=== PATIENT | female | born 1975 | race Hispanic/Latino ===

== ENCOUNTER 2016-05-26 17:02 | Emergency (ER) | payer BC ==
[2016-05-26 17:04] VITALS: BMI 28.3
[2016-05-26 17:07] VITALS: O2SAT 100
--- NOTE | 2016-05-26 17:13 | ED PDOC ---
Arrival/HPI - General Time Seen by Provider: 05/26/16 17:03 Historian: Patient - History of Present Illness Narrative History of Present Illness (Text): 05/26/16 17:03 Amrita Phillip is a 41 year old female who presents to the emergency department complaining of a seizure while sitting in the emergency department where her mother is a patient. Patient was noted to be on the floor of bed 5, where mother is a patient, by Emergency department staff. Patient was seen on the floor with seizure activity such as generalized shaking. Patient was immediately placed on a stretcher and give IM Ativan. Seizure subsided after approximately 2 minutes. At present, patient is alert and oriented. 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 Patient notes that she also takes medication for a bipolar disorder. Patient occasionally drinks alcohol but denies any drug use. According to , patient tends to get more seizures when she is stressed. At present, patient is complaining of a headache, neck pain, and left shoulder pain but denies any other complaints at this time. PMD: Dr. Kalen Hsieh Time/Duration: Other (In Emergency department ) Symptom Onset: Sudden Symptom Course: Improving Severity Level: Mild Activities at Onset: Rest Context: Sitting Past Medical History - Provider Review Nursing Documentation Reviewed: Yes - Infectious Disease Hx of Infectious Diseases: None - Tetanus Immunization Tetanus Immunization: Unknown - Cardiac Hx Cardiac Disorders: No - Pulmonary Hx Respiratory Disorders: No - Neurological Hx Neurological Disorder: Yes Hx Seizures: Yes - HEENT Hx HEENT Disorder: No - Renal Hx Renal Disorder: No - Endocrine/Metabolic Hx Endocrine Disorders: No Hx Hypothyroidism: No - Hematological/Oncological Hx Blood Disorders: No - Integumentary Hx Dermatological Disorder: No - Musculoskeletal/Rheumatological Hx Musculoskeletal Disorders: Yes Hx Falls: Yes Other/Comment: ACL repair - Gastrointestinal Hx Gastrointestinal Disorders: Yes Hx Gastroesophageal Reflux: Yes - Genitourinary/Gynecological Hx Genitourinary Disorders: No - Psychiatric Hx Psychophysiologic Disorder: Yes Hx Anxiety: Yes Hx Bipolar Disorder: Yes Hx Depression: Yes Hx Substance Use: Yes - Past Surgical History Past Surgical History: Unable to Obtain - Surgical History Hx Section: Yes Hx Orthopedic Surgery: Yes (Cervical spine) Other/Comment: ACL repair 2 weeks ago - Anesthesia Hx Anesthesia: Yes Hx Anesthesia Reactions: No Hx Malignant Hyperthermia: No - Suicidal Assessment Feels Threatened In Home Enviroment: No Family/Social History - Physician Review Nursing Documentation Reviewed: Yes Family/Social History: No Known Family HX Smoking Status: Heavy Smoker > 10 Cigarettes Daily Hx Alcohol Use: No Hx Substance Use: Yes Hx Substance Use Treatment: No Allergies/Home Meds Allergies/Adverse Reactions: Allergies strawberry Allergy (Verified 05/26/16 17:04) ANAPHYLAXIS Home Medications: Home Meds Medication Instructions Recorded Confirmed Gabapentin [Neurontin] 1,200 mg PO BID 07/13/13 08/09/15 Alprazolam [Xanax] 0.5 mg PO PRN PRN 08/16/14 07/21/15 DULoxetine [Cymbalta] 60 mg PO HS 08/16/14 07/21/15 Brice Carbonate [Brice 300 mg PO BID 08/16/14 08/09/15 Carbonate 150MG] Risperidone [Risperdal] 1 mg PO DAILY 07/21/15 08/09/15 Venlafaxine [Effexor XR] 150 mg PO DAILY 07/21/15 08/09/15 LORazepam [Ativan] 1 mg PO DAILY PRN 08/09/15 08/09/15 Review of Systems - Physician Review All systems were reviewed & negative as marked: Yes - Review of Systems Constitutional: absent: Fevers, Night Sweats Eyes: absent: Vision Changes ENT: absent: Hearing Changes Respiratory: absent: SOB, Cough Cardiovascular: absent: Chest Pain Gastrointestinal: absent: Abdominal Pain Genitourinary Female: absent: Urine Output Changes Musculoskeletal: Neck Pain, Other (Left Shoulder pain ) Neurological: Headache, Seizure Endocrine: absent: Diaphoresis Hemo/Lymphatic: absent: Easy Bleeding Psychiatric: absent: Depression Physical Exam Vital Signs Temp Pulse Resp BP Pulse Ox 05/26/16 18:57 98 H 17 123/78 100 05/26/16 17:20 98.4 F 05/26/16 17:07 130 H 12 100 - Systems Exam Head: Present: Atraumatic, Normocephalic Pupils: Present: PERRL Extroacular Muscles: Present: EOMI Conjunctiva: Present: Normal Mouth: Present: Moist Mucous Membranes Neck: Present: Normal Range of Motion Respiratory/Chest: Present: Clear to Auscultation, Good Air Exchange. No: Respiratory Distress, Accessory Muscle Use Cardiovascular: Present: Regular Rate and Rhythm, Normal S1, S2. No: Murmurs Abdomen: Present: Normal Bowel Sounds. No: Tenderness, Distention, Peritoneal Signs Back: Present: Normal Inspection Upper Extremity: Present: Normal Inspection. No: Cyanosis, Edema Lower Extremity: Present: Normal Inspection. No: Edema Neurological: Present: GCS=15, CN II-XII Intact, Speech Normal, Motor Func Grossly Intact, Normal Sensory Function, Normal Cerebellar Funct, Other (no focal deficits) Skin: Present: Warm, Dry, Normal Color. No: Rashes Psychiatric: Present: Alert, Oriented x 3 Medical Decision Making ED Course and Treatment: 05/26/16 18:22 Reviewed radiology, Left shoulder x-ray shows no acute fracture or dislocation. 05/26/16 18:[address] w/o contrast Creator : Eddie Alejo MD FINDINGS: HEMORRHAGE:No acute parenchymal, subarachnoid or extra-axial hemorrhage. BRAIN:No focal areas of abnormal attenuation are seen within the substance of the brain. No obvious parenchymal nor extra-axial masses or collections. Suspect partially empty sella VENTRICLES:Ventricular and sulcal size are within range of normal for this patient's stated age. CALVARIUM:There are no acute calvarial fractures. Localized small area of scalp swelling right superior frontal region. . Suspect small localized area of swelling left occipital/suboccipital region. PARANASAL SINUSES:Visualized paranasal air complexes are well-developed. . There appears to be partial opacification of sockets from a since removed maxillary molar however clinical correlation is suggested. MASTOID AIR CELLS:Unremarkable as visualized. No inflammatory changes. OTHER FINDINGS:Orbits and contents unremarkable. IMPRESSION: No acute intracranial hemorrhage. Localized small area of scalp swelling right superior frontal region. . Suspect small localized area of swelling left occipital/suboccipital region. 05/26/16 18:[address] FINDINGS: Vertebrae: Soft tissues: No displaced fracture. Cervical straightening is present, which may be due to postsurgical changes/ cervical collar placement, positioning, muscular spasm or ligamentous injury. Correlate clinically.. Discs/spinal canal/neural foramina: Anterior fusion hardware is noted at C5-C6. Streak artifact from hardware limits evaluation. No spinal canal stenosis. Lung apices: Unremarkable as visualized. 3.4 cm left thyroid nodule. IMPRESSION: No displaced fracture. Cervical straightening is present, which may be due to postsurgical changes/ cervical collar placement, positioning, muscular spasm or ligamentous injury. Correlate clinically 3.4 cm left thyroid nodule. The remainder of the findings are as described above. Dictated and Authenticated by: Marilyn Acuna MD 05/26/2016 6:37 PM Eastern Time ([place] & [place]) Due to recurrent seizure activity I rec admission however the pt wished to sign out AMA. She is fully alert and oriented and v/u of risks. - Lab Interpretations Lab Results: 05/26/16 17:05 05/26/16 17:05 Lab Results 05/26/16 17:29: Urine Color Yellow, Urine Appearance Clear, Urine pH 6.5, Ur Specific [place] <= 1.005, Urine Protein Negative, Urine Glucose (UA) Negative, Urine Ketones Negative, Urine Blood Negative, Urine Nitrate Negative, Urine Bilirubin Negative, Urine Urobilinogen 0.2, Ur Leukocyte Esterase Negative, Urine Opiates Screen Negative, Urine Methadone Screen Negative, Ur Barbiturates Screen Negative, Ur Phencyclidine Scrn Negative, Ur Amphetamines Screen Negative , U Benzodiazepines Scrn Positive H, U Oth Cocaine Metabols Negative, U Cannabinoids Screen Negative 05/26/16 17:05: WBC 15.4 H D, RBC 4.31, Hgb 11.0 L, Hct 35.3 L, MCV 81.9, MCH 25.5, MCHC 31.2, RDW 17.4 H, Plt Count 547 H, MPV 8.8, Gran % 62.8, Lymph % ( Auto) 27.2, [place] % (Auto) 6.6 H, Eos % (Auto) 2.9, Baso % (Auto) 0.5, Gran # 9.64 H, Lymph # 4.2 H, [place] # 1.0 H, Eos # 0.5, Baso # 0.08, Sodium 143, Potassium 3.7, Chloride 106, Carbon Dioxide 21, Anion Gap 20, BUN 8, Creatinine 0.7, Est GFR ( Amer) > 60, Est GFR (Non-Af Amer) > 60, Random Glucose 108 , Calcium 9.5, Total Bilirubin 0.4, AST 45 H, ALT 30, Alkaline Phosphatase 76, Total Protein 8.0, Albumin 4.5, Globulin 3.5, Albumin/Globulin Ratio 1.3 - RAD Interpretation Radiology Orders: 05/26/16 17:05 CERVICAL SPINE W/O CONTRAST [CT] Stat HEAD W/O CONTRAST [CT] Stat 05/26/16 17:06 SHOULDER LEFT [RAD] Stat - Medication Orders Current Medication Orders: Discontinued Medications Acetaminophen (Tylenol 325mg Tab) 650 mg PO STAT STA Stop: 05/26/16 17:39 Last Admin: 05/26/16 18:00 Dose: 650 MG MAR Pain/Vitals Document 05/26/16 18:00 HI (Rec: 05/26/16 18:42 HI [id number]) Pain Reassessment Is This A Pain ReAssessment? No Sleep Is patient sleeping during reassessment? 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 Sodium Chloride (Sodium Chloride 0.9%) 1,000 mls @ 999 mls/hr IV .Q1H1M STA Stop: 05/26/16 18:43 Last Admin: 05/26/16 18:43 Dose: Not Given Non-Admin Reason: Patient Refused Ketorolac Tromethamine (Toradol) 10 mg IVP STAT STA Stop: 05/26/16 18:26 Last Admin: 05/26/16 18:43 Dose: 10 MG IVP Administration Document 05/26/16 18:43 HI (Rec: 05/26/16 18:43 HI [id number]) Charges for Administration # of IVP Administrations 1 Lorazepam (Ativan) 2 mg IM ONCE ONE PRN Reason: Protocol Stop: 05/26/16 17:14 Last Admin: 05/26/16 17:02 Dose: 2 MG Behavioural Document 05/26/16 17:02 HI (Rec: 05/26/16 17:32 HI [id number]) Maintenance Maintenance Dose No Nonmedicinal Nonmedicinal Interventions Activity Behavior Behavior for Medication: Anxiety Behavior Comment seizures IM Administration Charges Document 05/26/16 17:02 HI (Rec: 05/26/16 17:32 HI [id number]) Injection Site MAR Injection Site Left Deltoid Charges for Administration # of IM Administrations 1 Lorazepam (Ativan) 1 mg IVP ONCE ONE PRN Reason: Protocol Stop: 05/26/16 17:14 Last Admin: 05/26/16 17:16 Dose: 1 MG Behavioural Document 05/26/16 17:16 HI (Rec: 04/15/17 17:17 [id number] Maintenance Maintenance Dose Yes Behavior Behavior Comment seizure IVP Administration Document 05/26/16 17:16 HI (Rec: 05/26/16 17:17 [id number] Charges for Administration # of IVP Administrations 1 - Scribe Statement The provider has reviewed the documentation as recorded by the Scribe Carine Worrell Provider Scribe Attestation: All medical record entries made by the Scribe were at my direction and personally dictated by me. I have reviewed the chart and agree that the record accurately reflects my personal performance of the history, physical exam, medical decision making, and the department course for this patient. I have also personally directed, reviewed, and agree with the discharge instructions and disposition. Disposition/Present on Arrival - Present on Arrival Any Indicators Present on Arrival: No History of DVT/PE: No History of Uncontrolled Diabetes: No Urinary Catheter: No History Surgical Site Infection Following: None - Disposition Have Diagnosis and Disposition been Completed?: Yes Diagnosis: Head contusion, Seizure Disposition: AGAINST MEDICAL ADVICE Disposition Time: 18:57 Condition: GUARDED Additional Instructions: Please follow up with your doctor on Saturday. Return to the ER for any worsening symptoms or for any other concerns. Prescriptions: Naproxen [Naprosyn] 500 mg PO Q12H PRN #10 tablet PRN Reason: Pain, Moderate (4-7) Referrals: Kalen Hsieh MD [Primary Care Provider] - Follow up with primary
[2016-05-26 17:18] LABS: ADD MANUAL DIFF? NO
[2016-05-26 17:20] VITALS: TEMP 98.4
[2016-05-26 17:22] LABS: BASO # 0.08 K/mm3 (0.0-2.0); BASO % 0.5 % (0.0-3.0); EOS # 0.5 (0.0-0.7); EOS % 2.9 % (1.5-5.0); GRAN # 9.64 (1.4-6.5); GRAN % 62.8 % (50.0-68.0); HEMATOCRIT 35.3 % (36.0-48.0); LYMPH # 4.2 (1.2-3.4); LYMPH % 27.2 % (22.0-35.0); MEAN CELL VOLUME 81.9 fL (80.0-105.0); MEAN CORPUSCULAR HEMOGLOBIN 25.5 pg (25.0-35.0); MEAN CORPUSCULAR HGB CONC 31.2 g/dl (31.0-37.0); MEAN PLATELET VOLUME 8.8 fl (7.0-11.0); MONO % 6.6 % (1.0-6.0); PLATELET COUNT 547 10^3/uL (120.0-450.0); RED CELL DISTRIBUTION WIDTH 17.4 % (11.5-14.5); WHITE BLOOD COUNT 15.4 10^3/ul (4.5-11.0)
[2016-05-26 17:36] LABS: ALB/GLOB RATIO 1.3 (1.1-1.8); ALKALINE PHOSPHATASE 76 U/L (38-133); ALT/SGPT 30 U/L (7-56); AST/SGOT 45 U/L (15-39); BILIRUBIN,TOTAL 0.4 mg/dL (0.2-1.3); BLOOD UREA NITROGEN 8 mg/dL (7-21); CALCIUM 9.5 mg/dL (8.4-10.5); CARBON DIOXIDE 21 mmol/L (21-33); CHLORIDE 106 mmol/L (98-107); GFR AFRICAN-AMERICAN > 60; GLUCOSE,RANDOM 108 mg/dL (70-110); POTASSIUM 3.7 mmol/L (3.6-5.0); SODIUM 143 mmol/L (132-148)
[2016-05-26 17:38] LABS: PH,URINE 6.5 (4.7-8.0); URINE BILIRUBIN NEGATIVE (NEGATIVE); URINE BLOOD NEGATIVE (NEGATIVE); URINE GLUCOSE (UA) NEGATIVE (NEGATIVE); URINE KETONE NEGATIVE (NEGATIVE); URINE LEUKOCYTE ESTERASE NEGATIVE Leu/uL (NEGATIVE); URINE PROTEIN NEGATIVE mg/dL (<30 mg/dL); URINE UROBILINOGEN 0.2 E.U./dL (<1 E.U./dL)
[2016-05-26 17:40] LABS: URINE APPEARANCE CLEAR (CLEAR); URINE COLOR YELLOW (YELLOW)
[2016-05-26] MEDS ORDERED: Sodium Chloride 0.9% 1,000 ML IV STA (17:43)
--- NOTE | 2016-05-26 18:21 | CT ---
PROCEDURE: CT HEAD WITHOUT CONTRAST. HISTORY: fall headache COMPARISON: Comparison made with prior CT scan brain 10/19/2015. TECHNIQUE: Axial computed tomography images were obtained through the head/brain without intravenous contrast. Radiation dose: Total exam DLP = 733.86 mGy-cm. This CT exam was performed using one or more of the following dose reduction techniques: Automated exposure control, adjustment of the mA and/or kV according to patient size, and/or use of iterative reconstruction technique. FINDINGS: HEMORRHAGE: No acute parenchymal, subarachnoid or extra-axial hemorrhage. BRAIN: No focal areas of abnormal attenuation are seen within the substance of the brain. No obvious parenchymal nor extra-axial masses or collections. Suspect partially empty sella VENTRICLES: Ventricular and sulcal size are within range of normal for this patient's stated age. CALVARIUM: There are no acute calvarial fractures. Localized small area of scalp swelling right superior frontal region. . Suspect small localized area of swelling left occipital/suboccipital region. PARANASAL SINUSES: Visualized paranasal air complexes are well-developed. . There appears to be partial opacification of sockets from a since removed maxillary molar however clinical correlation is suggested. MASTOID AIR CELLS: Unremarkable as visualized. No inflammatory changes. OTHER FINDINGS: Orbits and contents unremarkable. IMPRESSION: No acute intracranial hemorrhage. Localized small area of scalp swelling right superior frontal region. . Suspect small localized area of swelling left occipital/suboccipital region.
[2016-05-26 19:02] VITALS: BP 123/78; PULSE 98; RESP 17
--- NOTE | 2016-05-27 09:39 | CT ---
PROCEDURE: CT Cervical Spine without contrast HISTORY: <neck pain fall> COMPARISON: None available. TECHNIQUE: Axial computed tomography images were obtained of the cervical spine without the use of intravenous contrast. Coronal and sagittal reformatted images were created and reviewed. Radiation dose: Total exam DLP = 678.78 mGy-cm. This CT exam was performed using one or more of the following dose reduction techniques: Automated exposure control, adjustment of the mA and/or kV according to patient size, and/or use of iterative reconstruction technique. FINDINGS: VERTEBRAE: No acute fractures nor retropulsed fragments. . ACDF changes at the C5-C6 level. There appears to be in in situ bone graft within the disc space. Short-segment fixation plate attached to the anterior margins of C5 and C6 with 2 threaded screws at each level. Hardware appears intact without evidence of loosening or infection. Fusion overall appears solid. Remaining vertebral bodies exhibit normal stature. Slight straightening of the normal cervical lordosis possibly due to patient positioning gantry however element of underlying muscle spasm not excluded. DISCS/SPINAL CANAL/NEURAL FORAMINA: Remaining disc space heights are maintained. . No disc herniation or significant disc bulges. The facet joints appear room moderately hypertrophic on the right side at the C3-C4 and to a lesser degree C4-C5 levels . Central canal and exit foramina appear adequate. . PARASPINAL SOFT TISSUES: Prevertebral and paraspinal soft tissues unremarkable. OTHER FINDINGS: Enlarged left lobe thyroid gland with what appears represent 3.4 cm the nodule left lobe. Thyroid ultrasound recommended. Lung apices are clear. IMPRESSION: No fractures. ACDF changes noted at the C5-C6 level. Fusion appears solid with no evidence of hardware failure. Moderate right-sided facet arthropathy C3-C4 and mild right-sided facet arthropathy C4-C5 levels. Large hyperdense mass density left lobe thyroid gland. Recommend followup thyroid ultrasound.
--- NOTE | 2016-05-27 10:24 | RAD ---
PROCEDURE: Left shoulder dated 05/26/2016 Three views of the left shoulder performed HISTORY: seizure, pain COMPARISON: No prior. FINDINGS: BONES: Current study reveals no evidence of acute displaced fracture nor dislocation. Left humeral head is appropriately located with respect to the glenoid The osseous structures intact. . JOINTS: Normal. Glenohumeral and acromioclavicular joints preserved. No osteoarthritis. SOFT TISSUES: Normal. OTHER FINDINGS: Note is made of a 2 level ACDF plate overlying the lower cervical spine IMPRESSION: No evidence of acute displaced fracture nor dislocation.
== END 2016-05-26 18:57 | disposition left against medical advice (07) ==
LOC: ED 17:02
DX: S00.93XA Contusion of unspecified part of head, initial encounter (principal); X58.XXXA Exposure to other specified factors, initial encounter; Y92.239 Unspecified place in hospital as the place of occurrence of the external cause; R56.9 Unspecified convulsions
CPT/HCPCS: 70450; 72125; 73030; 80053; 81003; 85025; 96372; 96374; 96375; 99285; G0480; J1885; J2060